=== PATIENT | female | born 1990 | race Caucasian/White ===

== ENCOUNTER 2017-03-27 23:16 | Emergency (ER) | payer BC, OTHER ==
[~2017-03-27] VITALS: Ht 167.6 cm; Wt 65.8 kg
--- NOTE | 2017-03-27 23:40 | NUR ---
Patient agitated, walking back and forth from the bed to the restroom multiple times, unsteady gait and continually appearing as if she is falling over flinging her head and arms around. Patient screaming out at staff. ERMD notified, orders received.
[2017-03-27] MEDS ORDERED: LORAZEPAM 2 MG/1 ML VIAL IM ONE (23:45)
[2017-03-27] MEDS ORDERED: diphenhydrAMINE 50 MG/1 ML VIAL IM ONE (23:45)
--- NOTE | 2017-03-27 23:50 | NUR ---
Patient will not remain in bed, 1:1 sitter at bedside for safety.
[2017-03-27] MEDS ORDERED: LORAZEPAM 2 MG/1 ML VIAL ONE ×2 (23:55)
[2017-03-27] MEDS ORDERED: diphenhydrAMINE 50 MG/1 ML VIAL ONE ×2 (23:55)
--- NOTE | 2017-03-27 23:58 | NUR ---
Patient continues to attempt to elope the bed, verbally agressive with staff, nearly falling requiring additional staff at bedside, 1:1 sitter at bedside for safety.
[2017-03-28] MEDS ORDERED: HALOPERIDOL LACTATE 5 MG/1 ML VIAL IM ONE (00:15)
[2017-03-28] MEDS ORDERED: LORAZEPAM 2 MG/1 ML VIAL ONE (00:15)
[2017-03-28] MEDS ORDERED: LORAZEPAM 2 MG/1 ML VIAL IM ONE (00:15)
[2017-03-28] MEDS ORDERED: HALOPERIDOL LACTATE 5 MG/1 ML VIAL ONE (00:15)
[2017-03-28 00:25] LABS: BASOPHILS # (AUTO) 0.1 K/uL (0.0-8.0); BASOPHILS % (AUTO) 0.4 % (0.0-2.0); EOSINOPHILS % (AUTO) 0.1 % (0.0-7.0); HEMOGLOBIN 14.2 G/DL (12.0-16.0); LYMPHOCYTES # (AUTO) 1.6 K/UL (0.8-4.8); LYMPHOCYTES % (AUTO) 12.7 % (20.5-51.5); MEAN CORPUSCULAR HEMOGLOBIN 29.6 UUG (27.0-31.0); MEAN CORPUSCULAR HGB CONC 35 g/dL (32.0-37.0); MEAN CORPUSCULAR VOLUME 85.4 FL (81.0-99.0); MONOCYTES # (AUTO) 1.2 K/UL (0.1-1.30); NEUTROPHILS % (AUTO) 77.8 % (38.5-71.5); PLATELET COUNT (AUTO) 307 K/UL (150-450); WHITE BLOOD COUNT (AUTO) 12.9 K/UL (4.0-11.2)
[2017-03-28 00:37] LABS: ETHANOL < 3 MG/DL (0-0)
[2017-03-28 00:54] LABS: ALANINE AMINOTRANSFERASE 67 U/L (14-59); ALKALINE PHOSPHATASE 100 U/L (50-136); ASPARTATE AMINOTRANSFERASE 114 U/L (15-37); BILIRUBIN,DIRECT 0.3 mg/dL (0.0-0.2); CARBON DIOXIDE 25 mmol/L (21-32); CHLORIDE 100 mmol/L (98-107); GLUCOSE 108 mg/dL (74-106); POTASSIUM 3.4 mmol/L (3.5-5.1); TOTAL PROTEIN, SERUM 8.5 g/dL (6.4-8.2); UREA NITROGEN, BLOOD 18 mg/dL (7-18)
--- NOTE | 2017-03-28 01:00 | NUR ---
Patient is resting comfortably in bed with eyes closed, 1:1 sitter at bedside for safety.
[2017-03-28 01:10] LABS: ACETAMINOPHEN < 2.0 ug/mL (10-30)
[2017-03-28] MEDS ORDERED: POTASSIUM CHLORIDE 20 MEQ TAB.PRT.SR PO ONE (02:00)
--- NOTE | 2017-03-28 02:50 | NUR ---
Patient is resting comfortably in bed with eyes closed, 1:1 sitter at bedside for safety.
--- NOTE | 2017-03-28 03:30 | NUR ---
Patient is resting comfortably in bed with eyes closed, 1:1 sitter at bedside for safety.
--- NOTE | 2017-03-28 05:24 | NUR ---
Patient is resting comfortably in bed with eyes closed
--- NOTE | 2017-03-28 06:45 | NUR ---
Patient is resting comfortably in bed with eyes closed
[2017-03-28] MEDS ORDERED: POTASSIUM CHLORIDE 20 MEQ TAB.PRT.SR ONE (06:57)
--- NOTE | 2017-03-28 07:00 | NUR ---
Hands off report received from boiler house mechanic. Pt sleeping with no s/s of acute distress noted, [facility] staff member at bedside for 1:1 observation for safety.
--- NOTE | 2017-03-28 08:00 | NUR ---
Pt is awake and alert, pt was evaluated by [facility] intake. Per [facility] intake pt states she does not want to be admitted to [facility] anymore and wants to go home. Nursing quarter supervisor called and updated on situation.
--- NOTE | 2017-03-28 08:07 | NUR ---
Pt was re-evaluated by Dr. Barton , pt to be d/c home via taxi ( with voucher). [facility] called with eta 15 mins. Per [facility] pt was picked up at [id number] [place] [address], [place] [address], pt verified thats where she would like go back to.
--- NOTE | 2017-03-28 08:21 | NUR ---
Patient discharged in stable conditon. Written and verbal after care instructions given. Patient verbalizes understanding of instructions. Pt ambulatory with steady gait and was assisted to taxi via w/c.
[2017-03-28 08:28] VITALS: BP 123/84
== END 2017-03-28 08:29 | disposition home or self-care (01) ==
LOC: ER 23:19
DX: F29 Unspecified psychosis not due to a substance or known physiological condition (principal); F15.10 Other stimulant abuse, uncomplicated; E87.6 Hypokalemia
CPT/HCPCS: 36415; 84703; 85025; A4663; G0480; G0480-TC; J1200; J1630; J2060